=== PATIENT | female | born 1945 | race Caucasian/White ===

== ENCOUNTER 2022-07-07 09:12 | Inpatient (IN) | payer MEDICARE, MEDICAID ==
[2022-07-07 10:51] LABS: #Lymphocytes 1.5 thou/uL (1.20-3.40); #Monocytes 0.8 thou/uL (0.11-0.59); #Neutrophils 6.9 thou/uL (1.40-6.50); %Basophils 0.1 % (0.0-1.0); %Eosinophils 0.5 % (0.0-10.0); %Lymphocytes 16.3 % (21.0-51.0); %Monocytes 8.1 % (0.0-10.0); Hemoglobin 15.7 g/dL (12.0-16.0); Mean Corpuscular HGB CONC 32.9 g/dL (32.0-36.0); Mean Corpuscular Hemoglobin 31.5 pg (27.0-31.0); Mean Corpuscular Volume 95.8 fl (78.0-98.0); Mean Platelet Volume 8.1 fL (7.4-10.4); Platelet Count 324 10x3/uL (130-400); RBC Distribution Width 12.1 % (11.5-14.5); Red Blood Cell (RBC) Count 4.99 mill/uL (4.20-5.40); White Blood Cell (WBC) Count 9.2 10x3/uL (4.8-10.8)
[2022-07-07 12:01] LABS: Albumin 3.4 g/dL (3.4-4.8); Alkaline Phosphatase 98 U/L (40-110); Anion Gap 22 mmol/L (10-20); Bilirubin, Total 0.6 mg/dL (0.2-1.2); Calc. Creatinine Clearance 0 mL/min (70-130); Calcium 9.2 mg/dL (7.8-10.44); Carbon Dioxide 15 mmol/L (23-31); Chloride 103 mmol/L (98-107); Estimated GFR 56; Globulin 4.1 g/dL (2.4-3.5); Glucose 353 mg/dL (83-110); Potassium 5.5 mmol/L (3.5-5.1); Protein, Total 7.5 g/dL (5.8-8.1); Sodium 134 mmol/L (136-145)
[2022-07-07 12:11] LABS: ALT (SGPT) 10 U/L (8-55); AST (SGOT) 35 U/L (5-34); BUN (Urea Nitrogen) 25 mg/dL (9.8-20.1); CK (CPK) 227 U/L (29-168)
[2022-07-07 12:30] LABS: Bacteria/HPF 4+ HPF (None Seen); Bilirubin Negative (Negative); Blood, Urine 3+ (Negative); Clarity Turbid (Clear); Glucose, Urine (Dipstick) Greater than 1000 mg/dL (Negative); Ketone, Urine 60 mg/dL (Negative); Leukocyte 75 Leu/uL (Negative); Nitrite Negative (Negative); Protein, Urine (Dipstick) 70 mg/dL (Neg-Trace); RBC/HPF Greater than 50 HPF (0-3); Specific Gravity, Urine 1.029 (1.002-1.036); Squamous Epithelial 0-3 HPF (0-3); Urobilinogen Normal mg/dL (Less than 2); WBC/HPF Greater than 50 HPF (0-3); pH, Urine 5.5 (5.0-9.0)
[2022-07-07 12:36] LABS: CKMB 18.3 ng/mL (0-6.6)
[2022-07-07] MEDS ORDERED: Aspirin Chewable 81 MG TAB ONE (12:43)
[2022-07-07 13:26] LABS: Actual Bicarbonate (HCO3v) 15 mEq/L (22-28); Base Excess -6.7 mEq/L (-2.0 to +3.0); Calcium, Ionized (venous) 1.01 mmol/L (1.16-1.32); Chloride (VBG) 104 mmol/L (98-106); Hemoglobin (Hb) 14.8 g/dL (11.7-16.1); Potassium (VBG) 4.77 mmol/L (3.70-5.30); Sodium 131.5 mmol/L (133-146); pH (venous) 7.45 (7.32-7.43)
[2022-07-07] MEDS ORDERED: cefTRIAXone\\ROCEPHIN 1 GM VIAL ONE (14:02)
[2022-07-07] MEDS ORDERED: Acetaminophen 325 MG TAB PO PRN (14:07)
[2022-07-07] MEDS ORDERED: Dextrose 5% in Water 1,000 ML IV PRN (14:15)
[2022-07-07] MEDS ORDERED: Dextrose 50% Abboject 50 ML SYRINGE SLOW IVP PRN (14:15)
[2022-07-07] MEDS ORDERED: Sodium Chloride 0.9% 1,000 ML IV SCH (14:30)
[2022-07-07 15:49] LABS: Anion Gap 20 mmol/L (10-20); BUN (Urea Nitrogen) 23 mg/dL (9.8-20.1); Calc. Creatinine Clearance 0 mL/min (70-130); Calcium 8.7 mg/dL (7.8-10.44); Carbon Dioxide 15 mmol/L (23-31); Chloride 104 mmol/L (98-107); Estimated GFR 66; Glucose 316 mg/dL (83-110); Potassium 4.7 mmol/L (3.5-5.1); Sodium 134 mmol/L (136-145)
[2022-07-07 16:17] LABS: Troponin I 9.427 ng/mL (< 0.028)
[2022-07-07 18:03] LABS: SARS-CoV-2 NAA Rapid Test Not Detected (NotDetected)
[2022-07-07 18:43] VITALS: BMI 32.1
[2022-07-07 19:41] LABS: Critical Call Chem Troponin I RESULT DECREASING; Troponin I 8.016 ng/mL (< 0.028)
[2022-07-07] MEDS: Metoprolol Tartrate 25 MG TAB PO SCH (20:48)
[2022-07-07] MEDS: Atorvastatin Calcium 40 MG TAB PO SCH (20:48)
[2022-07-07] MEDS: HumaLOG 300 UNITS/3 ML VIAL SC PRN (20:57)
[2022-07-07] MEDS ORDERED: Famotidine 20 MG TAB PO SCH (21:00)
[2022-07-08] MEDS: HumaLOG 300 UNITS/3 ML VIAL SC PRN ×5 (01:46→17:30)
[2022-07-08 02:25] LABS: #Lymphocytes 1.1 thou/uL (1.20-3.40); #Monocytes 0.9 thou/uL (0.11-0.59); #Neutrophils 9.8 thou/uL (1.40-6.50); %Basophils 0.2 % (0.0-1.0); %Eosinophils 0.1 % (0.0-10.0); %Lymphocytes 9.2 % (21.0-51.0); %Monocytes 7.6 % (0.0-10.0); %Neutrophils 82.9 % (42.0-75.0); Hemoglobin 13.7 g/dL (12.0-16.0); Mean Corpuscular HGB CONC 32.9 g/dL (32.0-36.0); Mean Corpuscular Hemoglobin 31.8 pg (27.0-31.0); Mean Corpuscular Volume 96.7 fl (78.0-98.0); Mean Platelet Volume 7.9 fL (7.4-10.4); Platelet Count 314 10x3/uL (130-400); RBC Distribution Width 12.1 % (11.5-14.5); White Blood Cell (WBC) Count 11.8 10x3/uL (4.8-10.8)
[2022-07-08 02:36] LABS: Anion Gap 24 mmol/L (10-20); BUN (Urea Nitrogen) 27 mg/dL (9.8-20.1); Calc. Creatinine Clearance 47 mL/min (70-130); Calcium 9.1 mg/dL (7.8-10.44); Carbon Dioxide 14 mmol/L (23-31); Chloride 104 mmol/L (98-107); Estimated GFR 44; Glucose 336 mg/dL (83-110); Potassium 5.1 mmol/L (3.5-5.1); Sodium 137 mmol/L (136-145)
[2022-07-08] MEDS ORDERED: Losartan 25 MG TAB PO SCH (09:00)
[2022-07-08] MEDS ORDERED: Aspirin 81 mg Enteric Coated Tablet PO SCH (09:00)
[2022-07-08] MEDS ORDERED: Furosemide 20 MG TAB PO SCH (09:00)
[2022-07-08 09:30] LABS: Actual Bicarbonate (HCO3v) 18 mEq/L (22-28); Base Excess -8.6 mEq/L (-2.0 to +3.0); Calcium, Ionized (venous) 1.21 mmol/L (1.16-1.32); Chloride (VBG) 104 mmol/L (98-106); Hemoglobin (Hb) 15.3 g/dL (11.7-16.1); Sodium 139.6 mmol/L (133-146); pH (venous) 7.26 (7.32-7.43)
[2022-07-08 10:03] LABS: Anion Gap 23 mmol/L (10-20); BUN (Urea Nitrogen) 30 mg/dL (9.8-20.1); Calc. Creatinine Clearance 41 mL/min (70-130); Calcium 9.4 mg/dL (7.8-10.44); Carbon Dioxide 16 mmol/L (23-31); Chloride 105 mmol/L (98-107); Estimated GFR 37; Glucose 334 mg/dL (83-110); Potassium 4.7 mmol/L (3.5-5.1); Sodium 139 mmol/L (136-145)
[2022-07-08 10:06] LABS: Magnesium 2.2 mg/dL (1.6-2.6); Phosphorus 3.6 mg/dL (2.3-4.7)
[2022-07-08] MEDS ORDERED: Sodium Bicarbonate 100 MEQ in Sodium Chloride 0.45% 1,000 ML IV SCH ×3 (10:15→14:00)
[2022-07-08] MEDS ORDERED: Insulin NPH Human Isophane 100 UNIT/ML (10 ML VIAL) SC SCH (10:15)
[2022-07-08 10:50] LABS: Hemoglobin A1c 13.7 % (4.0-6.0)
[2022-07-08] MEDS ORDERED: Electrolyte Replacement Protocol 1 EACH IVPB SCH (13:31)
[2022-07-08] MEDS ORDERED: HumaLOG 300 UNITS/3 ML VIAL SC SCH (13:45)
[2022-07-08] MEDS ORDERED: HUMULIN R 100 UNITS in Sodium Chloride 0.9% 100 ML IVPB SCH (13:45)
[2022-07-08] MEDS: Clopidogrel Bisulfate 75 MG TAB PO SCH (14:19)
[2022-07-08] MEDS: Empagliflozin 10 MG TAB PO SCH (14:19)
[2022-07-08] MEDS: Metoprolol Tartrate 25 MG TAB PO SCH ×2 (14:19→20:45)
[2022-07-08] MEDS: Ezetimibe 10 MG TAB PO SCH (14:19)
[2022-07-08] MEDS: Aspirin 300 MG Suppository PR SCH (14:20)
[2022-07-08] MEDS ORDERED: Magnevist 469MG/ML 20 ML VIAL ONE (14:28)
[2022-07-08] MEDS ORDERED: Lorazepam 2 MG/ML VIAL SLOW IVP SCH (14:30)
[2022-07-08] MEDS: D5 1/2 NS w/20 mEq KCL 1,000 ML IV SCH ×3 (16:01→23:51)
[2022-07-08] MEDS: cefTRIAXone\\ROCEPHIN 1 GM in Sodium Chloride 0.9% 100 ML IVPB SCH (16:01)
[2022-07-08 16:51] LABS: Anion Gap 21 mmol/L (10-20); BUN (Urea Nitrogen) 34 mg/dL (9.8-20.1); Calc. Creatinine Clearance 48 mL/min (70-130); Calcium 9.3 mg/dL (7.8-10.44); Carbon Dioxide 17 mmol/L (23-31); Chloride 107 mmol/L (98-107); Estimated GFR 45; Glucose 233 mg/dL (83-110); Potassium 4.5 mmol/L (3.5-5.1); Sodium 140 mmol/L (136-145)
[2022-07-08] MEDS ORDERED: Labetalol HCl 100 MG/20 ML VIAL SLOW IVP PRN (19:39)
[2022-07-08] MEDS: Atorvastatin Calcium 40 MG TAB PO SCH (20:44)
[2022-07-08] MEDS ORDERED: Famotidine 20 MG TAB PO SCH (21:00)
[2022-07-08 22:31] LABS: Anion Gap 15 mmol/L (10-20); BUN (Urea Nitrogen) 29 mg/dL (9.8-20.1); Calc. Creatinine Clearance 55 mL/min (70-130); Calcium 8.9 mg/dL (7.8-10.44); Carbon Dioxide 22 mmol/L (23-31); Chloride 108 mmol/L (98-107); Estimated GFR 53; Glucose 183 mg/dL (83-110); Potassium 3.9 mmol/L (3.5-5.1); Sodium 141 mmol/L (136-145)
[2022-07-09] MEDS: D5 1/2 NS w/20 mEq KCL 1,000 ML IV SCH ×4 (03:48→13:58)
[2022-07-09 04:48] LABS: Cardiac Risk 4.7 (Less than 4.5); Cholesterol 179 mg/dl (< 200 Desired); HDL Cholesterol 38 mg/dL (>60 Neg Risk); LDL Cholesterol, Calculated 116 mg/dL; Magnesium 1.9 mg/dL (1.6-2.6); Triglycerides 125 mg/dL (Less than 150)
[2022-07-09 04:54] LABS: Anion Gap 15 mmol/L (10-20); BUN (Urea Nitrogen) 27 mg/dL (9.8-20.1); Calc. Creatinine Clearance 62 mL/min (70-130); Calcium 8.8 mg/dL (7.8-10.44); Carbon Dioxide 17 mmol/L (23-31); Chloride 110 mmol/L (98-107); Estimated GFR 62; Glucose 137 mg/dL (83-110); Phosphorus 1.9 mg/dL (2.3-4.7); Potassium 4.4 mmol/L (3.5-5.1); Sodium 138 mmol/L (136-145)
[2022-07-09] MEDS: Metoprolol Tartrate 25 MG TAB PO SCH (07:48)
[2022-07-09] MEDS: Ezetimibe 10 MG TAB PO SCH (07:48)
[2022-07-09] MEDS: Empagliflozin 10 MG TAB PO SCH (07:48)
[2022-07-09] MEDS: Clopidogrel Bisulfate 75 MG TAB PO SCH (07:48)
[2022-07-09] MEDS ORDERED: PHOS-NAK 1 PKT PACK PO SCH (08:00)
[2022-07-09] MEDS ORDERED: Magnesium 2 GM/50 ML(in water) 2 GM in Premix Bag 1 BAG IVPB SCH (08:00)
[2022-07-09] MEDS: Pantoprazole 40 MG VIAL IVP SCH (08:01)
[2022-07-09] MEDS ORDERED: Insulin Regular 300 UNITS/3 ML VIAL SC PRN ×2 (08:29→15:08)
[2022-07-09] MEDS ORDERED: D5 1/2 NS w/20 mEq KCL 1,000 ML IV SCH (08:30)
[2022-07-09] MEDS ORDERED: Heparin 5,000 UNITS/ML VIAL SC SCH (09:00)
[2022-07-09 09:57] LABS: Anion Gap 12 mmol/L (10-20); BUN (Urea Nitrogen) 23 mg/dL (9.8-20.1); Calc. Creatinine Clearance 69 mL/min (70-130); Calcium 8.6 mg/dL (7.8-10.44); Carbon Dioxide 20 mmol/L (23-31); Chloride 108 mmol/L (98-107); Estimated GFR 66; Glucose 253 mg/dL (83-110); Potassium 4.4 mmol/L (3.5-5.1); Sodium 136 mmol/L (136-145)
[2022-07-09] MEDS: Insulin NPH Human Isophane 100 UNIT/ML (10 ML VIAL) SC SCH ×2 (10:12→21:15)
[2022-07-09 12:04] VITALS: BP 129/77
[2022-07-09] MEDS: Aspirin 300 MG Suppository PR SCH (13:58)
[2022-07-09] MEDS: cefTRIAXone\\ROCEPHIN 1 GM in Sodium Chloride 0.9% 100 ML IVPB SCH (13:58)
[2022-07-09 14:23] LABS: Anion Gap 14 mmol/L (10-20); BUN (Urea Nitrogen) 21 mg/dL (9.8-20.1); Calc. Creatinine Clearance 74 mL/min (70-130); Calcium 8.5 mg/dL (7.8-10.44); Carbon Dioxide 18 mmol/L (23-31); Chloride 108 mmol/L (98-107); Estimated GFR 72; Glucose 345 mg/dL (83-110); Potassium 5.4 mmol/L (3.5-5.1); Sodium 135 mmol/L (136-145)
[2022-07-09] MEDS ORDERED: Dextrose 5 %-0.45 % NaCl 1,000 ML IV SCH ×2 (15:15)
[2022-07-09] MEDS ORDERED: Furosemide 40 MG/4 ML VIAL SLOW IVP SCH (15:30)
[2022-07-09] MEDS ORDERED: Furosemide 20 MG/2 ML VIAL SLOW IVP SCH (15:30)
[2022-07-09] MEDS: Insulin Regular 300 UNITS/3 ML VIAL SC PRN ×2 (16:07→21:15)
[2022-07-09] MEDS: Lorazepam 2 MG/ML VIAL SLOW IVP PRN ×2 (16:13→21:23)
[2022-07-09] MEDS: Metoprolol Tartrate 5 MG/5 ML VIAL IVP PRN (21:14)
[2022-07-09] MEDS: Atorvastatin Calcium 40 MG TAB PO SCH (21:16)
[2022-07-09] MEDS: Nystatin Powder 15 GM BOT TOP SCH (21:17)
[2022-07-09] MEDS: Amino Acids 4.25 %/Dextrose 5% 1,000 ML IV SCH (21:47)
[2022-07-09 22:32] LABS: Chloride 107 mmol/L (98-107); Potassium 5.8 mmol/L (3.5-5.1); Sodium 135 mmol/L (136-145)
[2022-07-09 22:33] LABS: Calcium 8.6 mg/dL (7.8-10.44); Glucose 329 mg/dL (83-110)
[2022-07-09 22:35] LABS: Anion Gap 19 mmol/L (10-20); Carbon Dioxide 15 mmol/L (23-31)
[2022-07-09 22:37] LABS: Calc. Creatinine Clearance 74 mL/min (70-130); Estimated GFR 72
[2022-07-09 22:38] LABS: BUN (Urea Nitrogen) 19 mg/dL (9.8-20.1)
[2022-07-09] MEDS ORDERED: Sodium Bicarb 50 MEQ/50 ML VIAL IVP SCH (23:15)
[2022-07-09] MEDS ORDERED: Insulin Regular 300 UNITS/3 ML VIAL IVP SCH ×2 (23:15)
[2022-07-10] MEDS: Insulin Regular 300 UNITS/3 ML VIAL SC PRN ×3 (02:10→21:04)
[2022-07-10 04:35] LABS: #Monocytes 1.1 thou/uL (0.11-0.59); #Neutrophils 8.8 thou/uL (1.40-6.50); %Eosinophils 0.1 % (0.0-10.0); %Lymphocytes 8.7 % (21.0-51.0); %Monocytes 10.4 % (0.0-10.0); %Neutrophils 80.8 % (42.0-75.0); Hemoglobin 11.9 g/dL (12.0-16.0); Mean Corpuscular HGB CONC 32.8 g/dL (32.0-36.0); Mean Corpuscular Hemoglobin 31.8 pg (27.0-31.0); Mean Corpuscular Volume 97.1 fl (78.0-98.0); Platelet Count 275 10x3/uL (130-400); RBC Distribution Width 12.3 % (11.5-14.5); Red Blood Cell (RBC) Count 3.75 mill/uL (4.20-5.40); White Blood Cell (WBC) Count 10.9 10x3/uL (4.8-10.8)
[2022-07-10 04:52] LABS: Lactic Acid 1.5 mmol/L (0.5-2.2)
[2022-07-10 05:10] LABS: Anion Gap 11 mmol/L (10-20); BUN (Urea Nitrogen) 20 mg/dL (9.8-20.1); Calc. Creatinine Clearance 86 mL/min (70-130); Calcium 8.4 mg/dL (7.8-10.44); Carbon Dioxide 24 mmol/L (23-31); Chloride 109 mmol/L (98-107); Estimated GFR 86; Glucose 247 mg/dL (83-110); Magnesium 1.9 mg/dL (1.6-2.6); Phosphorus 2.4 mg/dL (2.3-4.7); Potassium 3.9 mmol/L (3.5-5.1); Sodium 140 mmol/L (136-145)
[2022-07-10] MEDS: Metoprolol Tartrate 5 MG/5 ML VIAL IVP PRN (05:53)
[2022-07-10] MEDS ORDERED: Lorazepam 2 MG/ML VIAL SLOW IVP SCH (08:00)
[2022-07-10] MEDS: Insulin NPH Human Isophane 100 UNIT/ML (10 ML VIAL) SC SCH ×2 (08:04→21:01)
[2022-07-10] MEDS: Nystatin Powder 15 GM BOT TOP SCH ×2 (08:04→21:01)
[2022-07-10] MEDS: Pantoprazole 40 MG VIAL IVP SCH (08:04)
[2022-07-10] MEDS ORDERED: Magnesium 2 GM/50 ML(in water) 2 GM in Premix Bag 1 BAG IVPB SCH (09:00)
[2022-07-10] MEDS: Aspirin 300 MG Suppository PR SCH (14:50)
[2022-07-10] MEDS: cefTRIAXone\\ROCEPHIN 1 GM in Sodium Chloride 0.9% 100 ML IVPB SCH (14:50)
[2022-07-10 16:04] LABS: Anion Gap 10 mmol/L (10-20); BUN (Urea Nitrogen) 24 mg/dL (9.8-20.1); Calc. Creatinine Clearance 83 mL/min (70-130); Calcium 8.5 mg/dL (7.8-10.44); Carbon Dioxide 25 mmol/L (23-31); Chloride 107 mmol/L (98-107); Estimated GFR 85; Glucose 266 mg/dL (83-110); Sodium 138 mmol/L (136-145)
[2022-07-10] MEDS: Lorazepam 2 MG/ML VIAL SLOW IVP PRN ×3 (16:11→23:39)
[2022-07-10] MEDS: Amino Acids 4.25 %/Dextrose 5% 1,000 ML IV SCH (17:30)
[2022-07-10] MEDS ORDERED: Insulin Regular 300 UNITS/3 ML VIAL SC PRN (19:37)
[2022-07-10] MEDS: Atorvastatin Calcium 40 MG TAB PO SCH (20:40)
[2022-07-11] MEDS: Lorazepam 2 MG/ML VIAL SLOW IVP PRN ×4 (03:53→12:50)
[2022-07-11 04:32] LABS: #Eosinphils 0.1 thou/uL (0.0-0.7); #Lymphocytes 1.6 thou/uL (1.20-3.40); #Neutrophils 6.6 thou/uL (1.40-6.50); %Basophils 0.3 % (0.0-1.0); %Eosinophils 1.5 % (0.0-10.0); %Lymphocytes 17.1 % (21.0-51.0); %Monocytes 11.1 % (0.0-10.0); Hemoglobin 13.2 g/dL (12.0-16.0); Mean Corpuscular HGB CONC 33.8 g/dL (32.0-36.0); Mean Corpuscular Hemoglobin 33.5 pg (27.0-31.0); Mean Corpuscular Volume 99.1 fl (78.0-98.0); Mean Platelet Volume 9.1 fL (7.4-10.4); Platelet Count 241 10x3/uL (130-400); RBC Distribution Width 12.2 % (11.5-14.5); Red Blood Cell (RBC) Count 3.95 mill/uL (4.20-5.40); White Blood Cell (WBC) Count 9.4 10x3/uL (4.8-10.8)
[2022-07-11] MEDS: Metoprolol Tartrate 5 MG/5 ML VIAL IVP PRN (06:43)
[2022-07-11] MEDS: Insulin NPH Human Isophane 100 UNIT/ML (10 ML VIAL) SC SCH (07:55)
[2022-07-11] MEDS: Nystatin Powder 15 GM BOT TOP SCH (07:55)
[2022-07-11] MEDS: Pantoprazole 40 MG VIAL IVP SCH (07:57)
[2022-07-11 08:08] VITALS: TEMP 97.7
[2022-07-11] MEDS ORDERED: Digoxin 0.5 MG/2 ML AMP ONE (08:19)
[2022-07-11] MEDS ORDERED: Digoxin 0.5 MG/2 ML AMP SLOW IVP SCH ×3 (08:30→12:30)
[2022-07-11 08:37] LABS: Calcium 7.8 mg/dL (7.8-10.44); Chloride 110 mmol/L (98-107); Potassium 4.4 mmol/L (3.5-5.1); Sodium 137 mmol/L (136-145)
[2022-07-11 08:38] LABS: Glucose 310 mg/dL (83-110)
[2022-07-11 08:39] LABS: Anion Gap 13 mmol/L (10-20); Carbon Dioxide 18 mmol/L (23-31)
[2022-07-11 08:41] LABS: Calc. Creatinine Clearance 79 mL/min (70-130); Estimated GFR 81; Phosphorus 2.6 mg/dL (2.3-4.7)
[2022-07-11 08:42] LABS: BUN (Urea Nitrogen) 23 mg/dL (9.8-20.1)
[2022-07-11 08:43] LABS: Magnesium 1.8 mg/dL (1.6-2.6)
[2022-07-11] MEDS ORDERED: Morphine 2 MG/ML VIAL SLOW IVP PRN (09:19)
[2022-07-11] MEDS ORDERED: Morphine 4 MG/ML VIAL ONE (09:36)
[2022-07-11] MEDS ORDERED: Magnesium 2 GM/50 ML(in water) 2 GM in Premix Bag 1 BAG IVPB SCH (10:00)
[2022-07-11] MEDS: Amino Acids 4.25 %/Dextrose 5% 1,000 ML IV SCH (12:15)
[2022-07-11] MEDS: Aspirin 300 MG Suppository PR SCH (12:59)
[2022-07-11] MEDS: cefTRIAXone\\ROCEPHIN 1 GM in Sodium Chloride 0.9% 100 ML IVPB SCH (12:59)
== END 2022-07-11 16:30 | disposition hospice, inpatient (51) | DRG 64 ==
LOC: ERS 09:12 → ERHOLD 13:04 → OBSVTOIN 14:10 → 2NO 18:21 → IMCU/EMU 07-08 18:41
PROVIDERS: ADMIT Internal Medicine; ATTEND Internal Medicine
PROC: 5A09357 Assistance with Respiratory Ventilation, Less than 24 Consecutive Hours, Continuous Positive Airway Pressure (ICD-10-PCS; principal; 2022-07-10)
DX: I63.9 Cerebral infarction, unspecified (principal); E11.10 Type 2 diabetes mellitus with ketoacidosis without coma; I21.A1 Myocardial infarction type 2; G93.41 Metabolic encephalopathy; J96.01 Acute respiratory failure with hypoxia; N39.0 Urinary tract infection, site not specified; N17.9 Acute kidney failure, unspecified; G81.91 Hemiplegia, unspecified affecting right dominant side; I50.22 Chronic systolic (congestive) heart failure; F03.90 Unspecified dementia, unspecified severity, without behavioral disturbance, psychotic disturbance, mood disturbance, and anxiety; R47.01 Aphasia; I25.10 Atherosclerotic heart disease of native coronary artery without angina pectoris; E11.65 Type 2 diabetes mellitus with hyperglycemia; I11.0 Hypertensive heart disease with heart failure; E11.40 Type 2 diabetes mellitus with diabetic neuropathy, unspecified; E78.5 Hyperlipidemia, unspecified; E11.51 Type 2 diabetes mellitus with diabetic peripheral angiopathy without gangrene; I25.5 Ischemic cardiomyopathy; E87.5 Hyperkalemia; I34.0 Nonrheumatic mitral (valve) insufficiency; R13.10 Dysphagia, unspecified; B96.20 Unspecified Escherichia coli [E. coli] as the cause of diseases classified elsewhere; I65.22 Occlusion and stenosis of left carotid artery; I48.91 Unspecified atrial fibrillation; D63.8 Anemia in other chronic diseases classified elsewhere; G47.33 Obstructive sleep apnea (adult) (pediatric); Z86.73 Personal history of transient ischemic attack (TIA), and cerebral infarction without residual deficits; Z95.5 Presence of coronary angioplasty implant and graft; Z79.82 Long term (current) use of aspirin; Z79.899 Other long term (current) drug therapy; I25.2 Old myocardial infarction; Z98.890 Other specified postprocedural states; Z88.2 Allergy status to sulfonamides; Z91.048 Other nonmedicinal substance allergy status; Z20.822 Contact with and (suspected) exposure to COVID-19; Z79.84 Long term (current) use of oral hypoglycemic drugs
CPT/HCPCS: 36415; 36416; 70450; 70553; 71045; 80048; 80053; 80061; 81003; 81015; 82010; 82550; 82553; 82805; 83036; 83605; 83735; 83880; 84100; 84484; 85025; 86140; 87077; 87086; 87186; 93005; 93306; 93880; 94640; 94660; 96365; 96372; 97139; A9579; C9113; G0378; J0696; J1160; J1644; J1650; J1815; J1940; J2060; J2270; J2272; J3475; J3480; J3490; J7030; J7042; J7050; J7620; U0002

== ENCOUNTER 2022-07-11 16:53 | Inpatient (IN) | payer OTHER ==
[2022-07-11] MEDS ORDERED: Bisacodyl 10 MG SUPP PR PRN (17:14)
[2022-07-11] MEDS ORDERED: Haloperidol Lactate 5 MG/ML VIAL SLOW IVP PRN (17:15)
[2022-07-11] MEDS ORDERED: Ondansetron PF 4 MG/2 ML Vial IVP PRN (17:15)
[2022-07-11] MEDS ORDERED: Scopolamine 1.5 mg/72 hour Patch TOP PRN (17:15)
[2022-07-11] MEDS ORDERED: Promethazine HCl 25 MG SUPP PR PRN (17:15)
[2022-07-11] MEDS ORDERED: Acetaminophen 650 MG Suppository PR PRN (17:15)
[2022-07-11] MEDS ORDERED: diphenhydrAMINE 50 MG/ML VIAL IVP PRN (17:15)
[2022-07-11] MEDS: Morphine 2 MG/ML VIAL SLOW IVP PRN ×2 (19:36→22:13)
[2022-07-11] MEDS: Lorazepam 2 MG/ML VIAL SLOW IVP PRN ×2 (19:38→22:14)
[2022-07-12] MEDS: Morphine 2 MG/ML VIAL SLOW IVP PRN ×8 (01:29→22:02)
[2022-07-12] MEDS: Lorazepam 2 MG/ML VIAL SLOW IVP PRN ×6 (03:08→22:02)
[2022-07-12 21:36] VITALS: TEMP 98.6
== END 2022-07-13 03:29 | disposition expired | DRG 951 ==
LOC: IMCU/EMU 16:53
PROVIDERS: ADMIT Family Medicine; ATTEND Family Medicine
DX: Z51.5 Encounter for palliative care (principal); E11.10 Type 2 diabetes mellitus with ketoacidosis without coma; I63.9 Cerebral infarction, unspecified; I21.4 Non-ST elevation (NSTEMI) myocardial infarction; G93.41 Metabolic encephalopathy; N17.9 Acute kidney failure, unspecified; N39.0 Urinary tract infection, site not specified; I25.10 Atherosclerotic heart disease of native coronary artery without angina pectoris; I50.9 Heart failure, unspecified; F41.9 Anxiety disorder, unspecified; Z66 Do not resuscitate; E87.6 Hypokalemia; D63.8 Anemia in other chronic diseases classified elsewhere; B96.1 Klebsiella pneumoniae [K. pneumoniae] as the cause of diseases classified elsewhere; I08.1 Rheumatic disorders of both mitral and tricuspid valves; I48.91 Unspecified atrial fibrillation; G47.33 Obstructive sleep apnea (adult) (pediatric); Z88.2 Allergy status to sulfonamides
CPT/HCPCS: J2060; J2272